=== PATIENT | male | born 1980 | race African-American/Black ===

== ENCOUNTER 2020-10-05 22:54 | Emergency (ER) | payer SELFPAY ==
[~2020-10-05] VITALS: Ht 170.2 cm; Wt 63.5 kg
[2020-10-05] MEDS ORDERED: AZITHROMYCIN 250 MG TAB PO STA (23:24)
[2020-10-05] MEDS ORDERED: CEFTRIAXONE SOD 250 MG VIAL IM STA (23:24)
[2020-10-05] MEDS ORDERED: LIDOCAINE HCL 1% 2 ML AMP ONE (23:38)
[2020-10-06 00:05] VITALS: BP 134/96
== END 2020-10-06 00:09 | disposition home or self-care (01) ==
LOC: ER 23:00
DX: B20 Human immunodeficiency virus [HIV] disease (principal)
CPT/HCPCS: 99282; J0696; J2001